=== PATIENT | male | born 1970 | race Caucasian/White ===

== ENCOUNTER 2017-08-27 14:56 | Inpatient (IN) | payer BC, OTHER ==
[2017-08-27] VITALS (8 sets, daily range): BP systolic 120–143; BP diastolic 61–90; PULSE 69–81; RESP 14–18; TEMP 97.6–99.5; O2SAT 92–99
[~2017-08-27] VITALS: Ht 180.3 cm; Wt 95.9 kg
[~2017-08-27 14:56] MED LIST: LORTA5 PO; WARF5TAB PO
[2017-08-27] MEDS ORDERED: SODIUM CHLOR 0.9% 1000 ML INJ 1,000 ML IV SCH (15:27)
[2017-08-27] MEDS ORDERED: ONDANSETRON HCL 4 MG/2 ML VIAL IV PUSH ONE (15:30)
[2017-08-27] MEDS ORDERED: MORPHINE SULFATE 4 MG/ML INJ IV PUSH ONE (15:30)
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
--- NOTE | 2017-08-27 16:04 | RADRPT ---
EXAM DATE/TIME: 08/27/2017 15:36 [facility] COMPARISON: No previous studies available for comparison. INDICATIONS : Chest pain and shortness of breath. MEDICAL HISTORY : Rectal colon cancer. SURGICAL HISTORY : Ileostomy, Tonsillectomy. ENCOUNTER: Initial ACUITY: 1 day PAIN SCORE: 9/10 LOCATION: Bilateral chest FINDINGS: A single view of the chest demonstrates the lungs to be symmetrically aerated without evidence of mas s, infiltrate or effusion. The cardiomediastinal contours are unremarkable. Left fourth rib fracture noted laterally. CONCLUSION: 1. Left fourth rib fracture. No pneumothorax identified. Mild elevation left hemidiaphragm. Aries Sandhu MD on August 27, 2017 at 16:01 Board Certified Radiologist. This report was verified electronically.
[2017-08-27 16:06] LABS: BASOPHIL # 0.1 TH/MM3 (0-0.2); BASOPHIL % 0.3 % (0.0-2.0); EOSINOPHIL % 0.2 % (0.0-4.0); HEMATOCRIT 42.1 % (39.0-51.0); LYMPH % 7.3 % (9.0-44.0); LYMPHOCYTE # 1.3 TH/MM3 (1.0-4.8); MEAN CELL VOLUME 85.4 FL (80.0-100.0); MEAN CORPUSCULAR HEMOGLOBIN 30.4 PG (27.0-34.0); MEAN CORPUSCULAR HGB CONC 35.5 % (32.0-36.0); MEAN PLATELET VOLUME 8.3 FL (7.0-11.0); MONO % 6.3 % (0.0-8.0); MONOCYTE # 1.1 TH/MM3 (0-0.9); NEUT % 85.9 % (16.0-70.0); PLATELET COUNT 204 TH/MM3 (150-450); RED BLOOD COUNT 4.93 MIL/MM3 (4.50-5.90); RED CELL DISTRIBUTION WIDTH 14.1 % (11.6-17.2); WHITE BLOOD COUNT 17.5 TH/MM3 (4.0-11.0)
[2017-08-27 16:18] LABS: PROTHROMBIN TIME - PATIENT 10.5 SEC (9.8-11.6)
[2017-08-27 16:22] LABS: BICARBONATE 30.5 MEQ/L (21.0-32.0); BLOOD UREA NITROGEN 19 MG/DL (7-18); CALCIUM 8.9 MG/DL (8.5-10.1); CHLORIDE 106 MEQ/L (98-107); CREATININE 1.13 MG/DL (0.60-1.30); GLOMERULAR FILTRATION RATE 69 ML/MIN (>89); GLUCOSE,RANDOM 125 MG/DL (74-106); SODIUM (NA) 140 MEQ/L (136-145)
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
[2017-08-27] MEDS ORDERED: IOHEXOL 350 MG/ML 10 ML VIAL (for RAD DIAG) IVCONTRAST ONE (16:26)
[2017-08-27] MEDS ORDERED: MISCELLANEOUS NURSING INFORMATION XX SCH (16:30)
[2017-08-27] MEDS ORDERED: CHLORHEXIDINE GLUCONATE 2 % 1 PACK (2 CLOTHS) TOP PRN (16:30)
[2017-08-27] MEDS ORDERED: ACETAMINOPHEN 1000 MG/100 ML 100 ML IV ONE (16:30)
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
[2017-08-27] MEDS: LACTATED RINGER'S 1000 ML INJ 1,000 ML IV SCH (17:19)
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
[2017-08-27] MEDS: METHOCARBAMOL 500 MG TAB PO SCH ×3 (18:02→23:00)
[2017-08-27] MEDS: LIDOCAINE HCL 5% PATCH T-DERMAL SCH (19:26)
[2017-08-27] MEDS: HYDROmorphone HCL PF 2 MG/ML VIAL IV PRN (20:57)
[2017-08-27] MEDS: DOCUSATE SODIUM 100 MG CAP PO SCH (21:00)
[2017-08-27] MEDS: MAGNESIUM HYDROXIDE SUSP 30 ML CUP PO SCH (21:00)
[2017-08-27] MEDS: REMOVE OLD PATCH T-DERMAL SCH (21:00)
[2017-08-27] MEDS: FAMOTIDINE 20 MG TAB PO SCH (21:00)
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
[2017-08-28] VITALS (19 sets, daily range): BP systolic 115–167; BP diastolic 59–82; PULSE 61–113; RESP 18–21; TEMP 98.3–98.7; O2SAT 91–100
--- NOTE | 2017-08-28 01:18 | RADRPT ---
EXAM DATE/TIME: 08/28/2017 00:48 [facility] COMPARISON: CHEST SINGLE AP, August 27, 2017, 21:31. INDICATIONS : Evaluate pnemothorax. MEDICAL HISTORY : Carcinoma, rectal. Carcinoma, colon. Cardiovascular disease. SURGICAL HISTORY : None. ENCOUNTER: Subsequent ACUITY: 1 week PAIN SCORE: 0/10 LOCATION: Bilateral chest FINDINGS: A single view of the chest demonstrates the lungs to be symmetrically aerated without evidence of mas s, infiltrate or effusion. Bibasilar atelectasis. The cardiomediastinal contours are unremarkable. Sc oliotic spine. CONCLUSION: 1. Bibasilar atelectasis. 2. No pneumothorax. Per Nassar Jr., MD on August 28, 2017 at 1:15 Board Certified Radiologist. This report was verified electronically.
[2017-08-28] MEDS: RESP: ALBUTEROL 2.5 MG/IPRATROPIUM 0.5 MG NEB (PRN) NEB (01:25)
[2017-08-28] MEDS: MORPHINE SULFATE 2 MG/ML INJ IV PRN ×2 (03:28→20:22)
[2017-08-28] MEDS: LACTATED RINGER'S 1000 ML INJ 1,000 ML IV SCH (03:28)
[2017-08-28] MEDS: CHLORHEXIDINE GLUCONATE 2 % 1 PACK (2 CLOTHS) TOP SCH ×2 (03:48→20:21)
[2017-08-28] MEDS: RESP: ALBUTEROL 2.5 MG/IPRATROPIUM 0.5 MG NEB (SCH) NEB ×5 (04:49→19:41)
[2017-08-28 05:28] LABS: BICARBONATE 25.3 MEQ/L (21.0-32.0); CALCIUM 8.7 MG/DL (8.5-10.1); CREATININE 0.77 MG/DL (0.60-1.30)
[2017-08-28 05:40] LABS: AUTOMATED NEUTROPHIL # 6.9 TH/MM3 (1.8-7.7); BASOPHIL # 0.1 TH/MM3 (0-0.2); BASOPHIL % 0.9 % (0.0-2.0); EOSINOPHIL # 0.4 TH/MM3 (0-0.4); EOSINOPHIL % 3.3 % (0.0-4.0); HEMATOCRIT 38.7 % (39.0-51.0); HEMOGLOBIN 13.1 GM/DL (13.0-17.0); LYMPH % 27.1 % (9.0-44.0); LYMPHOCYTE # 3.1 TH/MM3 (1.0-4.8); MEAN CELL VOLUME 78.2 FL (80.0-100.0); MEAN CORPUSCULAR HEMOGLOBIN 26.4 PG (27.0-34.0); MEAN CORPUSCULAR HGB CONC 33.8 % (32.0-36.0); MONO % 8.3 % (0.0-8.0); MONOCYTE # 0.9 TH/MM3 (0-0.9); NEUT % 60.4 % (16.0-70.0); PLATELET COUNT 282 TH/MM3 (150-450); RED BLOOD COUNT 4.95 MIL/MM3 (4.50-5.90); RED CELL DISTRIBUTION WIDTH 15.2 % (11.6-17.2); WHITE BLOOD COUNT 11.4 TH/MM3 (4.0-11.0)
[2017-08-28] MEDS: METHOCARBAMOL 500 MG TAB PO SCH ×3 (06:10→21:01)
[2017-08-28] MEDS: HYDROmorphone HCL PF 2 MG/ML VIAL IV PRN (06:20)
[2017-08-28] MEDS: DOCUSATE SODIUM 100 MG CAP PO SCH ×2 (09:28→20:20)
[2017-08-28] MEDS: FAMOTIDINE 20 MG TAB PO SCH ×2 (09:28→20:20)
[2017-08-28] MEDS: MAGNESIUM HYDROXIDE SUSP 30 ML CUP PO SCH ×2 (09:28→20:20)
[2017-08-28] MEDS: SODIUM CHLORIDE 0.9% FLUSH 10 ML FLUSH IVF PRN (09:30)
[2017-08-28] MEDS: LIDOCAINE HCL 5% PATCH T-DERMAL SCH (09:30)
[2017-08-28] MEDS ORDERED: INFLUENZA VIRUS VACCINE (QUADRIVALENT) 0.5 ML SYR IM ONE (10:00)
[2017-08-28] MEDS ORDERED: PNEUMOCOCCAL POLYVALENT INJ 25 MCG/0.5 ML SYR IM ONE (10:00)
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
[2017-08-28] MEDS ORDERED: oxyCODONE/ACETAMINOPHEN 5 MG/325 MG TAB PO PRN (11:00)
[2017-08-28] MEDS: oxyCODONE/ACETAMINOPHEN 10 MG/325 MG TAB PO PRN ×2 (17:32→22:49)
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
[2017-08-28] MEDS: REMOVE OLD PATCH T-DERMAL SCH (20:20)
[2017-08-29] VITALS (9 sets, daily range): BP systolic 130–154; BP diastolic 72–93; PULSE 84–108; RESP 18–24; TEMP 97.3–98.4; O2SAT 91–95
[2017-08-29] MEDS: oxyCODONE/ACETAMINOPHEN 10 MG/325 MG TAB PO PRN ×3 (02:59→21:33)
[2017-08-29] MEDS: METHOCARBAMOL 500 MG TAB PO SCH ×3 (05:02→21:32)
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
[2017-08-29] MEDS: ACETAMINOPHEN 1000 MG/100 ML 100 ML IV SCH ×3 (07:01→19:40)
[2017-08-29] MEDS: FAMOTIDINE 20 MG TAB PO SCH ×2 (08:01→21:32)
[2017-08-29] MEDS: MAGNESIUM HYDROXIDE SUSP 30 ML CUP PO SCH ×2 (08:01→21:32)
[2017-08-29] MEDS: DOCUSATE SODIUM 50 MG/SENNA 8.6 MG TAB PO SCH ×2 (08:01→21:32)
[2017-08-29] MEDS: SODIUM CHLORIDE 0.9% FLUSH 10 ML FLUSH IVF PRN (08:02)
[2017-08-29] MEDS: LIDOCAINE HCL 5% PATCH T-DERMAL SCH (08:15)
[2017-08-29] MEDS: RESP: ALBUTEROL 2.5 MG/IPRATROPIUM 0.5 MG NEB (SCH) NEB ×4 (08:18→19:44)
[2017-08-29 11:19] LABS: HEMATOCRIT 39.3 % (39.0-51.0); HEMOGLOBIN 13.7 GM/DL (13.0-17.0)
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
[2017-08-29] MEDS: GABAPENTIN 300 MG CAP PO SCH ×2 (13:23→18:12)
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
[2017-08-29] MEDS: LEVOFLOXACIN 500 MG PREMIX INJ 100 ML IV SCH (18:12)
[2017-08-29] MEDS: REMOVE OLD PATCH T-DERMAL SCH (21:36)
[2017-08-30] VITALS (8 sets, daily range): BP systolic 124–186; BP diastolic 79–101; PULSE 108–114; RESP 18–22; TEMP 97–97.9; O2SAT 92–100
[2017-08-30] MEDS: ACETAMINOPHEN 1000 MG/100 ML 100 ML IV SCH (01:25)
[2017-08-30] MEDS: oxyCODONE/ACETAMINOPHEN 10 MG/325 MG TAB PO PRN ×4 (01:30→21:06)
[2017-08-30] MEDS: RESP: ALBUTEROL 2.5 MG/IPRATROPIUM 0.5 MG NEB (PRN) NEB (02:00)
[2017-08-30] MEDS: METHOCARBAMOL 500 MG TAB PO SCH ×3 (05:50→21:06)
--- NOTE | 2017-08-30 07:29 | RADRPT ---
EXAM DATE/TIME: 08/30/2017 06:27 [facility] COMPARISON: CHEST SINGLE AP, August 29, 2017, 5:40. INDICATIONS : Chest pain when coughing. Trauma. MEDICAL HISTORY : Carcinoma, rectal. Carcinoma, colon. Cardiovascular disease. SURGICAL HISTORY : None. ENCOUNTER: Subsequent ACUITY: 3 days PAIN SCORE: 4/10 LOCATION: Bilateral chest FINDINGS: The lungs are aerated. There is bibasilar airspace disease slightly more in the left. Nondisplaced fractures are identified of the fifth through eighth ribs on the left. Heart and mediastinal structures are stable. CONCLUSION: 1. Hypoaerated lungs with bibasilar atelectasis worse on the left. 2. Multiple left-sided rib fractures involving the fifth through eighth ribs. 3. Otherwise stable chest. Giorgi Ribeiro MD on August 30, 2017 at 7:26 Board Certified Radiologist. This report was verified electronically.
[2017-08-30] MEDS ORDERED: LACTULOSE SYRUP 20 GM/30 ML CUP PO ONE (07:30)
[2017-08-30] MEDS: RESP: ALBUTEROL 2.5 MG/IPRATROPIUM 0.5 MG NEB (SCH) NEB ×4 (07:44→19:11)
[2017-08-30] MEDS: FAMOTIDINE 20 MG TAB PO SCH ×2 (08:03→21:06)
[2017-08-30] MEDS: MAGNESIUM HYDROXIDE SUSP 30 ML CUP PO SCH ×2 (08:03→21:07)
[2017-08-30] MEDS: LIDOCAINE HCL 5% PATCH T-DERMAL SCH (08:03)
[2017-08-30] MEDS: ENOXAPARIN SODIUM 30 MG/0.3 ML SYRINGE SQ SCH ×2 (08:03→21:13)
[2017-08-30] MEDS: DOCUSATE SODIUM 50 MG/SENNA 8.6 MG TAB PO SCH ×2 (08:03→21:07)
[2017-08-30] MEDS: GABAPENTIN 300 MG CAP PO SCH ×3 (08:03→16:33)
[2017-08-30 09:20] LABS: AUTOMATED NEUTROPHIL # 9.2 TH/MM3 (1.8-7.7); BASOPHIL % 0.2 % (0.0-2.0); EOSINOPHIL % 0.1 % (0.0-4.0); HEMATOCRIT 40.1 % (39.0-51.0); HEMOGLOBIN 13.5 GM/DL (13.0-17.0); LYMPH % 6.3 % (9.0-44.0); LYMPHOCYTE # 0.7 TH/MM3 (1.0-4.8); MEAN CELL VOLUME 86.7 FL (80.0-100.0); MEAN CORPUSCULAR HEMOGLOBIN 29.1 PG (27.0-34.0); MEAN CORPUSCULAR HGB CONC 33.6 % (32.0-36.0); MEAN PLATELET VOLUME 9.2 FL (7.0-11.0); MONO % 12.8 % (0.0-8.0); MONOCYTE # 1.5 TH/MM3 (0-0.9); NEUT % 80.6 % (16.0-70.0); PLATELET COUNT 162 TH/MM3 (150-450); RED BLOOD COUNT 4.63 MIL/MM3 (4.50-5.90); RED CELL DISTRIBUTION WIDTH 14.1 % (11.6-17.2); WHITE BLOOD COUNT 11.4 TH/MM3 (4.0-11.0)
[2017-08-30 09:49] LABS: CALCIUM 9.5 MG/DL (8.5-10.1); CREATININE 0.86 MG/DL (0.60-1.30)
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
--- NOTE | 2017-08-30 16:28 | HHI.PR ---
Subjective Remarks ALERT NO DISTRESS Objective Vital Signs Date Time Temp Pulse Resp B/P (MAP) Pulse Ox O2 Delivery O2 Flow Rate FiO2 08/30/17 16:02 97.9 108 20 143/95 (111) 93 08/30/17 15:58 Nasal Cannula 3.00 08/30/17 13:42 16 08/30/17 11:30 97.0 110 22 157/100 (119) 93 08/30/17 07:47 92 Nasal Cannula 4.00 08/30/17 07:39 97.6 109 22 142/88 (106) 94 08/30/17 07:00 92 Nasal Cannula 4.00 08/30/17 06:47 109 20 144/89 (107) 95 08/30/17 04:00 97.4 110 18 124/79 (94) 100 08/30/17 02:08 18 08/30/17 01:35 94 Nasal Cannula 4.00 08/30/17 00:00 97.7 111 22 142/101 (115) 94 08/29/17 20:00 98.4 108 18 138/84 (102) 95 I/O 08/29/17 08/29/17 08/29/17 08/30/17 08/30/17 08/30/17 07:00 15:00 23:00 07:00 15:00 23:00 Intake Total 360 ml 200 ml Output Total 400 ml Balance 360 ml 200 ml -400 ml Intake Oral 360 ml IV Total 200 ml Output Urine Total 400 ml # Voids 1 # Bowel Movements 0 1 Result Diagram: 08/30/1770408/30/17 07 Objective Remarks GENERAL: SKIN: Warm and dry. HEAD: Atraumatic. Normocephalic. EYES: Pupils equal and round. No scleral icterus. No injection or drainage. ENT: No nasal bleeding or discharge. Mucous membranes pink and moist. NECK: Trachea midline. No JVD. CARDIOVASCULAR: Regular rate and rhythm. RESPIRATORY: No accessory muscle use. DECREASE BREATH SOUNDS AT BASIS GASTROINTESTINAL: Abdomen soft, non-tender, nondistended. Hepatic and splenic margins not palpable. MUSCULOSKELETAL: Extremities without clubbing, cyanosis, or edema. No obvious deformities. NEUROLOGICAL: Awake and alert. No obvious cranial nerve deficits. Motor grossly within normal limits. Five out of 5 muscle strength in the arms and legs. Normal speech. PSYCHIATRIC: Appropriate mood and affect; insight and judgment normal. Assessment and Plan Assessment and Plan LEFT RIB FX 6 TO 10 BIBASILAR ATELECTASIS , STABLE PLAN PULMONARY TOILET INCREASE ACTIVITY Addi Fontana MD Aug 30, 2017 16:28
[2017-08-30] MEDS: LEVOFLOXACIN 500 MG PREMIX INJ 100 ML IV SCH (16:33)
[2017-08-30] MEDS: REMOVE OLD PATCH T-DERMAL SCH (21:00)
[2017-08-30] MEDS: SODIUM CHLORIDE 0.9% FLUSH 10 ML FLUSH IVF PRN (21:08)
[2017-08-31] VITALS (8 sets, daily range): BP systolic 92–174; BP diastolic 55–101; PULSE 90–109; RESP 17–18; TEMP 97.2–98.7; O2SAT 86–94
[2017-08-31] MEDS: METHOCARBAMOL 500 MG TAB PO SCH (05:31)
[2017-08-31] MEDS: ONDANSETRON HCL 4 MG/2 ML VIAL IV PUSH PRN ×2 (06:09→14:16)
[2017-08-31] MEDS: SODIUM CHLORIDE 0.9% FLUSH 10 ML FLUSH IVF PRN ×2 (06:10→12:09)
[2017-08-31] MEDS: ENOXAPARIN SODIUM 30 MG/0.3 ML SYRINGE SQ SCH ×2 (07:51→23:11)
[2017-08-31] MEDS: MAGNESIUM HYDROXIDE SUSP 30 ML CUP PO SCH (07:51)
[2017-08-31] MEDS: GABAPENTIN 300 MG CAP PO SCH ×2 (07:51→12:13)
[2017-08-31] MEDS: FAMOTIDINE 20 MG TAB PO SCH (07:51)
[2017-08-31] MEDS: DOCUSATE SODIUM 50 MG/SENNA 8.6 MG TAB PO SCH (07:51)
[2017-08-31] MEDS: LIDOCAINE HCL 5% PATCH T-DERMAL SCH (07:52)
[2017-08-31] MEDS: oxyCODONE/ACETAMINOPHEN 10 MG/325 MG TAB PO PRN (07:53)
[2017-08-31] MEDS: RESP: ALBUTEROL 2.5 MG/IPRATROPIUM 0.5 MG NEB (SCH) NEB ×4 (08:34→20:00)
[2017-08-31] MEDS ORDERED: LISINOPRIL 20 MG TAB PO SCH (09:00)
[2017-08-31] MEDS ORDERED: PROMETHAZINE HCL 25 MG SUPP RECTAL ONE (12:00)
[2017-08-31] MEDS ORDERED: ENALAPRILAT 1.25 MG/ML VIAL IV PUSH PRN (12:00)
[2017-08-31] MEDS: MORPHINE SULFATE 2 MG/ML INJ IV PRN (12:09)
[2017-08-31 12:42] LABS: HEMATOCRIT 41.6 % (39.0-51.0); HEMOGLOBIN 14.3 GM/DL (13.0-17.0)
[2017-08-31] MEDS ORDERED: IOHEXOL 350 MG/ML 10 ML VIAL (for RAD DIAG) IVCONTRAST ONE (13:28)
--- NOTE | 2017-08-31 13:30 | RADRPT ---
EXAM DATE/TIME: 08/31/2017 12:55 [facility] COMPARISON: CT THORAX W CONTRAST, August 27, 2017, 15:56. INDICATIONS : Abdominal pain, distention. IV CONTRAST: 71 cc Omnipaque 350 (iohexol) IV ORAL CONTRAST: No oral contrast ingested. RADIATION DOSE: 10.49 CTDIvol (mGy) MEDICAL HISTORY : Carcinoma, colon. SURGICAL HISTORY : Colon resection. Tonsillectomy. ENCOUNTER: Initial ACUITY: 1 day PAIN SCALE: 7/10 LOCATION: Bilateral Abdomen TECHNIQUE: Volumetric scanning of the abdomen and pelvis was performed. Using automated exposure control and ad justment of the mA and/or kV according to patient size, radiation dose was kept as low as reasonably achievable to obtain optimal diagnostic quality images. DICOM format image data is available electro nically for review and comparison. FINDINGS: Comparison is August 27. Compared to previous exam there is development of a small left pleural effusi on and there is increasing basilar air space disease in both lungs multiple lower left rib fractures again noted. Previously identified left pneumothorax is nearly completely resolved. Again seen is several splenic lacerations. There is improvement in perisplenic hemorrhage. No acute f indings in the liver adrenals, kidneys or pancreas. Since previous exam interval development of marked gastric distention and dilatation of proximal and mid small bowel. There is some distal decompression of small bowel. His previous partial colonic rese ction. CONCLUSION: 1. Development of marked distention of the stomach and proximal and mid small bowel most characterist ic of a distal small bowel obstruction. No free air. Previous partial colonic resection with surgical clips in the right lower quadrant. 2. Development of small left pleural effusion with increasing bibasilar air space disease in the lung s. Differential diagnosis includes pneumonia and aspiration. 3. Splenic lacerations with improvement in perisplenic hemorrhage since August 27. 4. Multiple lower left rib fractures as noted previously with near complete resolution of left pneumo thorax. Aries Sandhu MD on August 31, 2017 at 13:23 Board Certified Radiologist. This report was verified electronically.
[2017-08-31] MEDS ORDERED: PROMETHAZINE HCL 25 MG SUPP RECTAL PRN (14:00)
[2017-08-31] MEDS ORDERED: DEXAMETHASONE SOD PHOS 4 MG/ML VIAL IV PUSH ONE (14:00)
[2017-08-31] MEDS ORDERED: cloNIDine HCL 0.2 MG/24 HR PATCH T-DERMAL SCH (14:00)
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
--- NOTE | 2017-08-31 15:29 | HHI.PR ---
Subjective Remarks ALERT NO DISTRESS ABDOMEN DISTENDED Objective Vital Signs Date Time Temp Pulse Resp B/P (MAP) Pulse Ox O2 Delivery O2 Flow Rate FiO2 08/31/17 12:00 97.7 100 18 161/100 (120) 86 08/31/17 08:36 92 Nasal Cannula 4.00 08/31/17 08:02 90 Nasal Cannula 4.00 08/31/17 08:00 98.4 106 18 174/101 (125) 90 08/31/17 04:00 97.2 109 18 145/88 (107) 94 08/31/17 00:00 98.2 96 18 137/81 (99) 93 08/30/17 21:43 Nasal Cannula 4.00 08/30/17 20:00 97.7 114 18 186/98 (127) 92 08/30/17 16:02 97.9 108 20 143/95 (111) 93 08/30/17 15:58 Nasal Cannula 3.00 I/O 08/30/17 08/30/17 08/30/17 08/31/17 08/31/17 08/31/17 07:00 15:00 23:00 07:00 15:00 23:00 Intake Total 200 ml Output Total 400 ml 500 ml Balance 200 ml -400 ml -500 ml IV Total 200 ml Output Urine Total 400 ml 500 ml # Bowel Movements 0 1 Result Diagram: 08/31/17 1220 08/30/17 0705 Objective Remarks GENERAL: SKIN: Warm and dry. HEAD: Atraumatic. Normocephalic. EYES: Pupils equal and round. No scleral icterus. No injection or drainage. ENT: No nasal bleeding or discharge. Mucous membranes pink and moist. NECK: Trachea midline. No JVD. CARDIOVASCULAR: Regular rate and rhythm. RESPIRATORY: No accessory muscle use. DECREASE BREATH SOUNDS AT BASIS GASTROINTESTINAL: Abdomen distended. Hepatic and splenic margins not palpable. MUSCULOSKELETAL: Extremities without clubbing, cyanosis, or edema. No obvious deformities. NEUROLOGICAL: Awake and alert. No obvious cranial nerve deficits. Motor grossly within normal limits. Five out of 5 muscle strength in the arms and legs. Normal speech. PSYCHIATRIC: Appropriate mood and affect; insight and judgment normal. Assessment and Plan Assessment and Plan LEFT RIB FX 6 TO 10 BIBASILAR ATELECTASIS , STABLE ? BOWEL OBSTRUCTION PLAN PULMONARY TOILET INCREASE ACTIVITY Addi Fontana MD 15, 2018 15:29
[2017-08-31 16:12] LABS: AUTOMATED NEUTROPHIL # 8.4 TH/MM3 (1.8-7.7); BASOPHIL % 0.1 % (0.0-2.0); HEMATOCRIT 38.7 % (39.0-51.0); HEMOGLOBIN 13.2 GM/DL (13.0-17.0); LYMPH % 6.6 % (9.0-44.0); LYMPHOCYTE # 0.7 TH/MM3 (1.0-4.8); MEAN CELL VOLUME 85.7 FL (80.0-100.0); MEAN CORPUSCULAR HEMOGLOBIN 29.1 PG (27.0-34.0); MEAN PLATELET VOLUME 8.5 FL (7.0-11.0); MONOCYTE # 1.5 TH/MM3 (0-0.9); NEUT % 79.3 % (16.0-70.0); PLATELET COUNT 187 TH/MM3 (150-450); RED BLOOD COUNT 4.52 MIL/MM3 (4.50-5.90); RED CELL DISTRIBUTION WIDTH 13.8 % (11.6-17.2); WHITE BLOOD COUNT 10.6 TH/MM3 (4.0-11.0)
[2017-08-31] MEDS: LEVOFLOXACIN 500 MG PREMIX INJ 100 ML IV SCH (18:17)
[2017-08-31] MEDS: REMOVE OLD PATCH T-DERMAL SCH (21:00)
[2017-08-31] MEDS: FAMOTIDINE 20 MG/2 ML VIAL IV PUSH SCH (23:11)
[2017-09-01] VITALS (9 sets, daily range): BP systolic 99–110; BP diastolic 51–59; PULSE 80–99; RESP 17–18; TEMP 97.4–99.1; O2SAT 81–99
[2017-09-01] MEDS: ONDANSETRON HCL 4 MG/2 ML VIAL IV PUSH PRN (00:10)
[2017-09-01 04:45] LABS: AUTOMATED NEUTROPHIL # 8.2 TH/MM3 (1.8-7.7); BASOPHIL % 0.3 % (0.0-2.0); HEMATOCRIT 40.1 % (39.0-51.0); HEMOGLOBIN 13.6 GM/DL (13.0-17.0); LYMPHOCYTE # 0.8 TH/MM3 (1.0-4.8); MEAN CORPUSCULAR HEMOGLOBIN 28.8 PG (27.0-34.0); MEAN CORPUSCULAR HGB CONC 33.8 % (32.0-36.0); MONO % 12.9 % (0.0-8.0); MONOCYTE # 1.3 TH/MM3 (0-0.9); NEUT % 78.8 % (16.0-70.0); PLATELET COUNT 197 TH/MM3 (150-450); RED BLOOD COUNT 4.72 MIL/MM3 (4.50-5.90); RED CELL DISTRIBUTION WIDTH 13.8 % (11.6-17.2); WHITE BLOOD COUNT 10.4 TH/MM3 (4.0-11.0)
[2017-09-01 04:55] LABS: CALCIUM 9.4 MG/DL (8.5-10.1); CREATININE 2.86 MG/DL (0.60-1.30)
[2017-09-01 05:47] LABS: BICARBONATE 42.3 MEQ/L (21.0-32.0)
[2017-09-01] MEDS ORDERED: LACTATED RINGER'S 1000 ML INJ 1,000 ML IV SCH (07:00)
[2017-09-01] MEDS ORDERED: LACTATED RINGER'S 1000 ML INJ 1,000 ML IV ONE (07:00)
[2017-09-01] MEDS ORDERED: SODIUM CHLOR 0.9% 1000 ML INJ 1,000 ML IV ONE ×2 (07:15→14:00)
[2017-09-01] MEDS: SODIUM CHLOR 0.9% 1000 ML INJ 1,000 ML IV SCH ×2 (07:17→14:26)
[2017-09-01] MEDS: ENOXAPARIN SODIUM 30 MG/0.3 ML SYRINGE SQ SCH (07:23)
[2017-09-01] MEDS: FAMOTIDINE 20 MG/2 ML VIAL IV PUSH SCH ×2 (07:23→21:47)
[2017-09-01] MEDS: LIDOCAINE HCL 5% PATCH T-DERMAL SCH (07:24)
[2017-09-01] MEDS: MORPHINE SULFATE 4 MG/ML INJ IV PRN (07:30)
--- NOTE | 2017-09-01 07:38 | RADRPT ---
EXAM DATE/TIME: 09/01/2017 07:04 [facility] COMPARISON: CHEST SINGLE AP, August 30, 2017, 6:27. INDICATIONS : Short of breath, chest discomfort MEDICAL HISTORY : Cardiovascular disease. rectal and colon carcinoma SURGICAL HISTORY : None. ENCOUNTER: Subsequent ACUITY: 4 - 6 days PAIN SCORE: 3/10 LOCATION: Bilateral chest FINDINGS: Improving aeration is noted. There is persistent bibasilar airspace disease with some clearing on the left. Nasogastric tube has been inserted and is in good position. Heart and mediastinal structures remain unremarkable. CONCLUSION: Improving lung aeration with decreasing basilar air space disease Nasogastric tube in good position. Giorgi Ribeiro MD on September 01, 2017 at 7:35 Board Certified Radiologist. This report was verified electronically.
[2017-09-01] MEDS: RESP: ALBUTEROL 2.5 MG/IPRATROPIUM 0.5 MG NEB (SCH) NEB (08:14)
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
[2017-09-01] MEDS: HEPARIN SODIUM - SQ 10,000 UNITS/ML VIAL SQ SCH ×2 (14:26→23:15)
--- NOTE | 2017-09-01 15:18 | HHI.PR ---
Subjective Remarks ALERT NO DISTRESS ABDOMEN DISTENDED Objective Vital Signs Date Time Temp Pulse Resp B/P (MAP) Pulse Ox O2 Delivery O2 Flow Rate FiO2 09/01/17 11:55 98.5 83 18 100/57 (71) 90 09/01/17 08:17 92 Nasal Cannula 5.00 09/01/17 07:46 98.9 99 18 110/59 (76) 81 09/01/17 06:18 89 104/51 (68) 09/01/17 05:28 98.0 94 17 100/59 (73) 94 09/01/17 00:05 99.1 86 17 101/55 (70) 95 08/31/17 22:14 Nasal Cannula 4.00 08/31/17 21:02 94 Nasal Cannula 4.00 08/31/17 20:32 97.7 95 17 92/56 (68) 93 08/31/17 16:00 98.7 90 18 101/55 (70) 92 I/O 08/31/17 08/31/17 08/31/17 09/01/17 09/01/17 09/01/17 07:00 15:00 23:00 07:00 15:00 23:00 Intake Total 990 ml Output Total 500 ml 3800 ml 2000 ml 200 ml Balance -500 ml -3800 ml -2000 ml 790 ml IV Total 990 ml Output Urine Total 500 ml 350 ml 200 ml Gastric Drainage Total 1650 ml Drainage Total 3800 ml Bladder Scan Volume Amount 679 ml # Voids 1 # Bowel Movements 1 Result Diagram: 09/01/17 0321 09/01/17 0321 Objective Remarks GENERAL: SKIN: Warm and dry. HEAD: Atraumatic. Normocephalic. EYES: Pupils equal and round. No scleral icterus. No injection or drainage. ENT: No nasal bleeding or discharge. Mucous membranes pink and moist. NECK: Trachea midline. No JVD. CARDIOVASCULAR: Regular rate and rhythm. RESPIRATORY: No accessory muscle use. DECREASE BREATH SOUNDS AT BASIS GASTROINTESTINAL: Abdomen distended. Hepatic and splenic margins not palpable. MUSCULOSKELETAL: Extremities without clubbing, cyanosis, or edema. No obvious deformities. NEUROLOGICAL: Awake and alert. No obvious cranial nerve deficits. Motor grossly within normal limits. Five out of 5 muscle strength in the arms and legs. Normal speech. PSYCHIATRIC: Appropriate mood and affect; insight and judgment normal. Assessment and Plan Assessment and Plan LEFT RIB FX 6 TO 10 BIBASILAR ATELECTASIS , STABLE ? BOWEL OBSTRUCTION, rosa isela today PLAN PULMONARY TOILET INCREASE ACTIVITY Addi Fontana MD Sep 01, 2017 15:18
[2017-09-01] MEDS: LEVOFLOXACIN 500 MG PREMIX INJ 100 ML IV SCH (17:14)
--- NOTE | 2017-09-01 18:39 | RADRPT ---
EXAM DATE/TIME: 09/01/2017 18:17 [facility] COMPARISON: CHEST SINGLE AP, September 01, 2017, 7:04. INDICATIONS : Abdominal distention. MEDICAL HISTORY : Carcinoma, colon. SURGICAL HISTORY : Colon resection. Tonsillectomy. ENCOUNTER: Initial ACUITY: 3 days PAIN SCORE: 6/10 LOCATION: Bilateral abdomen FINDINGS: There is a nasogastric tube present within the stomach. The exam demonstrates multiple air-filled, moderately dilated loops of small bowel suggesting possibl e bowel obstruction versus ileus. There is gas and stool evident within the colon. No free intraperitoneal air is evident. The osseous structures visualized are grossly intact. CONCLUSION: 1. There are multiple air-filled dilated loops of small bowel. There is gas and stool within the cecu m. Study would suggest an bowel obstruction versus ileus. Benjamin Mcallister MD on September 01, 2017 at 18:36 Board Certified Radiologist. This report was verified electronically.
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
[2017-09-01] MEDS: REMOVE OLD PATCH T-DERMAL SCH (21:49)
[2017-09-01] MEDS: SODIUM CHLORIDE 0.9% FLUSH 10 ML FLUSH IVF PRN (21:49)
[2017-09-02] VITALS (11 sets, daily range): BP systolic 109–133; BP diastolic 59–72; PULSE 17–91; RESP 17–22; TEMP 97.3–98.8; O2SAT 91–97
[2017-09-02] MEDS: SODIUM CHLOR 0.9% 1000 ML INJ 1,000 ML IV SCH ×3 (04:24→23:15)
[2017-09-02 05:43] LABS: AUTOMATED NEUTROPHIL # 8.3 TH/MM3 (1.8-7.7); BASOPHIL % 0.2 % (0.0-2.0); EOSINOPHIL # 0.1 TH/MM3 (0-0.4); EOSINOPHIL % 0.9 % (0.0-4.0); HEMATOCRIT 38.3 % (39.0-51.0); HEMOGLOBIN 13.2 GM/DL (13.0-17.0); LYMPH % 9.1 % (9.0-44.0); MEAN CELL VOLUME 85.5 FL (80.0-100.0); MEAN CORPUSCULAR HEMOGLOBIN 29.4 PG (27.0-34.0); MEAN CORPUSCULAR HGB CONC 34.3 % (32.0-36.0); MEAN PLATELET VOLUME 8.2 FL (7.0-11.0); MONOCYTE # 1.5 TH/MM3 (0-0.9); NEUT % 75.8 % (16.0-70.0); PLATELET COUNT 222 TH/MM3 (150-450); RED BLOOD COUNT 4.48 MIL/MM3 (4.50-5.90); RED CELL DISTRIBUTION WIDTH 13.8 % (11.6-17.2)
[2017-09-02 06:09] LABS: BICARBONATE 39.1 MEQ/L (21.0-32.0); CALCIUM 8.8 MG/DL (8.5-10.1); CREATININE 2.45 MG/DL (0.60-1.30)
[2017-09-02] MEDS: HEPARIN SODIUM - SQ 10,000 UNITS/ML VIAL SQ SCH ×3 (06:22→23:05)
[2017-09-02] MEDS ORDERED: SODIUM CHLOR 0.9% 1000 ML INJ 1,000 ML IV ONE (07:15)
[2017-09-02] MEDS: FAMOTIDINE 20 MG/2 ML VIAL IV PUSH SCH (08:11)
[2017-09-02] MEDS: SODIUM CHLORIDE 0.9% FLUSH 10 ML FLUSH IVF PRN (08:11)
[2017-09-02] MEDS: LIDOCAINE HCL 5% PATCH T-DERMAL SCH (08:11)
[2017-09-02] MEDS: MORPHINE SULFATE 4 MG/ML INJ IV PRN ×2 (08:20→19:10)
[2017-09-02 10:23] LABS: MAGNESIUM 3.9 MG/DL (1.5-2.5); PHOSPHORUS 3.5 MG/DL (2.5-4.9)
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
[2017-09-02] MEDS ORDERED: POTASSIUM CHLORIDE 10 MEQ CONTROLLED RELEASE TAB PO ONE (14:30)
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
[2017-09-02] MEDS: RESP: ALBUTEROL 2.5 MG/IPRATROPIUM 0.5 MG NEB (SCH) INH ×2 (16:41→20:16)
[2017-09-02] MEDS: LEVOFLOXACIN/DEXTROSE 250 MG/50 ML IV SCH (17:13)
[2017-09-02] MEDS ORDERED: FAMOTIDINE 20 MG/2 ML VIAL IV PUSH SCH (21:00)
[2017-09-02] MEDS: REMOVE OLD PATCH T-DERMAL SCH (23:07)
[2017-09-03] VITALS (12 sets, daily range): BP systolic 125–159; BP diastolic 76–87; PULSE 77–104; RESP 18–20; TEMP 97.6–98.3; O2SAT 93–96
[2017-09-03 06:20] LABS: BASOPHIL % 0.3 % (0.0-2.0); EOSINOPHIL # 0.2 TH/MM3 (0-0.4); EOSINOPHIL % 1.5 % (0.0-4.0); HEMATOCRIT 37.7 % (39.0-51.0); HEMOGLOBIN 12.6 GM/DL (13.0-17.0); LYMPH % 10.4 % (9.0-44.0); LYMPHOCYTE # 1.2 TH/MM3 (1.0-4.8); MEAN CORPUSCULAR HEMOGLOBIN 28.8 PG (27.0-34.0); MEAN CORPUSCULAR HGB CONC 33.5 % (32.0-36.0); MEAN PLATELET VOLUME 8.2 FL (7.0-11.0); MONO % 11.5 % (0.0-8.0); MONOCYTE # 1.4 TH/MM3 (0-0.9); NEUT % 76.3 % (16.0-70.0); PLATELET COUNT 212 TH/MM3 (150-450); RED BLOOD COUNT 4.38 MIL/MM3 (4.50-5.90); RED CELL DISTRIBUTION WIDTH 13.9 % (11.6-17.2); WHITE BLOOD COUNT 11.7 TH/MM3 (4.0-11.0)
[2017-09-03 06:44] LABS: BICARBONATE 31.5 MEQ/L (21.0-32.0); CALCIUM 8.7 MG/DL (8.5-10.1); CREATININE 1.12 MG/DL (0.60-1.30)
[2017-09-03] MEDS: HEPARIN SODIUM - SQ 10,000 UNITS/ML VIAL SQ SCH ×3 (06:49→22:53)
[2017-09-03] MEDS: RESP: ALBUTEROL 2.5 MG/IPRATROPIUM 0.5 MG NEB (SCH) INH ×4 (07:51→20:00)
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
[2017-09-03] MEDS: FAMOTIDINE 20 MG TAB PO SCH ×2 (08:52→20:31)
[2017-09-03] MEDS: DOCUSATE SODIUM 50 MG/SENNA 8.6 MG TAB PO SCH ×2 (08:52→20:32)
[2017-09-03] MEDS: SODIUM CHLOR 0.9% 1000 ML INJ 1,000 ML IV SCH ×4 (08:52→20:42)
[2017-09-03] MEDS: MAGNESIUM HYDROXIDE SUSP 30 ML CUP PO SCH ×2 (08:52→20:32)
[2017-09-03] MEDS: LIDOCAINE HCL 5% PATCH T-DERMAL SCH (08:52)
[2017-09-03] MEDS: oxyCODONE/ACETAMINOPHEN 10 MG/325 MG TAB PO PRN ×2 (08:52→17:31)
[2017-09-03] MEDS: GABAPENTIN 300 MG CAP PO SCH ×3 (08:52→17:31)
[2017-09-03] MEDS ORDERED: BISACODYL 10 MG SUPP RECTAL ONE (10:30)
--- NOTE | 2017-09-03 10:36 | HHI.PR ---
Subjective Remarks AxR appears to be ileus pattern. Stool in rectum and sigmoid. Air in colon above Objective Vital Signs Date Time Temp Pulse Resp B/P (MAP) Pulse Ox O2 Delivery O2 Flow Rate FiO2 09/03/17 09:47 82 09/03/17 08:40 98.1 85 18 125/76 (92) 94 09/03/17 07:51 96 Nasal Cannula 4.00 09/03/17 04:53 98.3 80 18 132/79 (96) 95 09/03/17 04:26 77 09/03/17 02:25 Nasal Cannula 4.00 Humidified 09/03/17 00:45 97.6 85 18 140/78 (98) 95 09/03/17 00:01 95 09/02/17 21:23 97.9 82 18 133/72 (92) 94 09/02/17 20:19 94 Nasal Cannula 4.00 09/02/17 20:00 89 09/02/17 17:54 83 09/02/17 16:43 96 Nasal Cannula 4.00 09/02/17 16:14 98.8 85 20 126/60 (82) 96 09/02/17 15:19 77 09/02/17 12:49 97.9 81 20 111/59 (76) 92 I/O 09/02/17 09/02/17 09/02/17 09/03/17 09/03/17 09/03/17 07:00 15:00 23:00 07:00 15:00 23:00 Intake Total 1123 ml 1490 ml Output Total 1500 ml 350 ml 950 ml 500 ml Balance -377 ml -350 ml 540 ml -500 ml IV Total 1123 ml 1490 ml Output Urine Total 1300 ml 350 ml 950 ml 500 ml Gastric Drainage Total 200 ml # Voids 7 # Bowel Movements 8 1 Result Diagram: 09/03/17 0425 09/03/17 0425 Objective Remarks Abd: obese,soft,minimal distention Assessment and Plan Assessment and Plan Stable Would start Regular Diet. Will give Dulcolax Suppository now. Will sign off. Jose Guadalupe Ayers MD Sep 03, 2017 10:36
[2017-09-03] MEDS: METHOCARBAMOL 500 MG TAB PO SCH ×2 (13:51→20:31)
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
[2017-09-03] MEDS: LEVOFLOXACIN/DEXTROSE 250 MG/50 ML IV SCH (17:32)
[2017-09-03] MEDS: ONDANSETRON HCL 4 MG/2 ML VIAL IV PUSH PRN (20:33)
[2017-09-03] MEDS: SODIUM CHLORIDE 0.9% FLUSH 10 ML FLUSH IVF PRN (20:33)
[2017-09-03] MEDS: REMOVE OLD PATCH T-DERMAL SCH (21:00)
[2017-09-04] VITALS (11 sets, daily range): BP systolic 115–159; BP diastolic 69–85; PULSE 72–96; RESP 16–20; TEMP 91.8–99.7; O2SAT 92–95
[2017-09-04] MEDS: ONDANSETRON HCL 4 MG/2 ML VIAL IV PUSH PRN (02:28)
[2017-09-04] MEDS: SODIUM CHLORIDE 0.9% FLUSH 10 ML FLUSH IVF PRN (02:29)
[2017-09-04 05:17] LABS: BICARBONATE 30.9 MEQ/L (21.0-32.0); CALCIUM 8.6 MG/DL (8.5-10.1); CREATININE 0.9 MG/DL (0.60-1.30)
[2017-09-04] MEDS: METHOCARBAMOL 500 MG TAB PO SCH ×3 (05:22→20:44)
[2017-09-04] MEDS: SODIUM CHLOR 0.9% 1000 ML INJ 1,000 ML IV SCH ×2 (05:23→22:28)
[2017-09-04] MEDS: HEPARIN SODIUM - SQ 10,000 UNITS/ML VIAL SQ SCH ×3 (06:14→20:43)
--- NOTE | 2017-09-04 07:35 | RADRPT ---
EXAM DATE/TIME: 09/04/2017 07:12 [facility] COMPARISON: CT ABDOMEN & PELVIS W CONTRAST, August 31, 2017, 12:55. CHEST SINGLE AP, September 01, 2017, 7:04. INDICATIONS : Shortness of breath with cough. MEDICAL HISTORY : Cardiovascular disease. Rectal and colon carcinoma SURGICAL HISTORY : None. ENCOUNTER: Subsequent ACUITY: 1 week PAIN SCORE: 2/10 LOCATION: Bilateral chest FINDINGS: Persistent bilateral pulmonary infiltrates are noted consistent with possible pneumonia. Small left p leural effusion is also again noted. The heart is stable. CONCLUSION: 1. Persistent bilateral pulmonary infiltrates consistent with possible pneumonia. 2. Small left pleural effusion. Ramin Oliva MD on September 04, 2017 at 7:32 Board Certified Radiologist. This report was verified electronically.
[2017-09-04] MEDS: RESP: ALBUTEROL 2.5 MG/IPRATROPIUM 0.5 MG NEB (SCH) INH ×4 (08:50→20:35)
[2017-09-04] MEDS: GABAPENTIN 300 MG CAP PO SCH ×3 (09:58→18:01)
[2017-09-04] MEDS: MAGNESIUM HYDROXIDE SUSP 30 ML CUP PO SCH ×2 (09:58→20:43)
[2017-09-04] MEDS: FAMOTIDINE 20 MG TAB PO SCH ×2 (09:58→20:43)
[2017-09-04] MEDS: DOCUSATE SODIUM 50 MG/SENNA 8.6 MG TAB PO SCH ×2 (09:58→20:44)
[2017-09-04] MEDS: LIDOCAINE HCL 5% PATCH T-DERMAL SCH (09:59)
[2017-09-04] MEDS: oxyCODONE/ACETAMINOPHEN 10 MG/325 MG TAB PO PRN ×2 (10:00→18:03)
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
--- NOTE | 2017-09-04 16:42 | HHI.PR ---
Subjective Remarks ALERT NO DISTRESS Objective Vital Signs Date Time Temp Pulse Resp B/P (MAP) Pulse Ox O2 Delivery O2 Flow Rate FiO2 09/04/17 14:22 75 09/04/17 11:36 94 Nasal Cannula 1.00 09/04/17 08:51 93 Nasal Cannula 2.00 09/04/17 08:00 98.0 90 16 133/69 (90) 93 09/04/17 04:05 97.4 72 18 115/71 (86) 95 09/04/17 00:53 99.7 93 20 159/85 (109) 95 09/03/17 20:15 Nasal Cannula 2.00 Humidified 09/03/17 19:58 98.3 104 20 159/77 (104) 95 I/O 09/03/17 09/03/17 09/03/17 09/04/17 09/04/17 09/04/17 07:00 15:00 23:00 07:00 15:00 23:00 Intake Total 880 ml 50 ml Output Total 500 ml 600 ml 400 ml Balance -500 ml 280 ml 50 ml -400 ml Intake Oral 480 ml IV Total 400 ml 50 ml Output Urine Total 500 ml 600 ml 400 ml # Voids 3 # Bowel Movements 2 1 Result Diagram: 09/03/17 0425 09/04/17 0336 Objective Remarks GENERAL: SKIN: Warm and dry. HEAD: Atraumatic. Normocephalic. EYES: Pupils equal and round. No scleral icterus. No injection or drainage. ENT: No nasal bleeding or discharge. Mucous membranes pink and moist. NECK: Trachea midline. No JVD. CARDIOVASCULAR: Regular rate and rhythm. RESPIRATORY: No accessory muscle use. DECREASE BREATH SOUNDS AT BASIS GASTROINTESTINAL: Abdomen distended. Hepatic and splenic margins not palpable. MUSCULOSKELETAL: Extremities without clubbing, cyanosis, or edema. No obvious deformities. NEUROLOGICAL: Awake and alert. No obvious cranial nerve deficits. Motor grossly within normal limits. Five out of 5 muscle strength in the arms and legs. Normal speech. PSYCHIATRIC: Appropriate mood and affect; insight and judgment normal. Assessment and Plan Assessment and Plan LEFT RIB FX 6 TO 10 BIBASILAR ATELECTASIS , STABLE ? BOWEL OBSTRUCTION, Better PLAN PULMONARY TOILET INCREASE ACTIVITY Addi Fontana MD Sep 04, 2017 16:42
[2017-09-04] MEDS: LEVOFLOXACIN/DEXTROSE 250 MG/50 ML IV SCH (18:00)
[2017-09-04] MEDS: REMOVE OLD PATCH T-DERMAL SCH (20:44)
[2017-09-05] VITALS: PULSE 77
[2017-09-05 00:43] VITALS: BP 116/68; PULSE 81; RESP 16; TEMP 98; O2SAT 93
[2017-09-05 04:49] VITALS: BP 147/88; PULSE 81; RESP 16; TEMP 97.8; O2SAT 94
[2017-09-05] MEDS: METHOCARBAMOL 500 MG TAB PO SCH (06:20)
[2017-09-05] MEDS: HEPARIN SODIUM - SQ 10,000 UNITS/ML VIAL SQ SCH (06:20)
[2017-09-05] MEDS ORDERED: OXYC1TAB63 PO (06:52)
[2017-09-05] MEDS ORDERED: LEVA500T33 PO (06:52)
[2017-09-05] MEDS ORDERED: PERI PO (06:52)
[2017-09-05 08:00] VITALS: BP 137/85; PULSE 92; RESP 16; TEMP 99.2; O2SAT 95
[2017-09-05] MEDS: RESP: ALBUTEROL 2.5 MG/IPRATROPIUM 0.5 MG NEB (SCH) INH (08:00)
[2017-09-05] MEDS: FAMOTIDINE 20 MG TAB PO SCH (08:02)
[2017-09-05] MEDS: GABAPENTIN 300 MG CAP PO SCH (08:02)
[2017-09-05] MEDS: MAGNESIUM HYDROXIDE SUSP 30 ML CUP PO SCH (08:02)
[2017-09-05] MEDS: DOCUSATE SODIUM 50 MG/SENNA 8.6 MG TAB PO SCH (08:02)
[2017-09-05 08:03] VITALS: O2SAT 94
[2017-09-05] MEDS: LIDOCAINE HCL 5% PATCH T-DERMAL SCH (08:03)
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
[2017-09-05] MEDS ORDERED: LEVOFLOXACIN 500 MG TAB PO SCH (09:00)
[2017-09-05 09:35] VITALS: PULSE 90
[2017-09-05] MEDS: SODIUM CHLOR 0.9% 1000 ML INJ 1,000 ML IV SCH (11:15)
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
== END 2017-09-05 11:49 | disposition home or self-care (01) | DRG 963 ==
LOC: NEPE 14:56 → NEDA 16:55 → N03A 20:47 → N05B 08-29 02:11
PROVIDERS: ADMIT Surgery Trauma Surgery; ATTEND Surgery Trauma Surgery
DX: S36.032A Major laceration of spleen, initial encounter (principal); J18.9 Pneumonia, unspecified organism; S27.321A Contusion of lung, unilateral, initial encounter; S27.0XXA Traumatic pneumothorax, initial encounter; N17.9 Acute kidney failure, unspecified; D68.51 Activated protein C resistance; S22.42XA Multiple fractures of ribs, left side, initial encounter for closed fracture; J44.0 Chronic obstructive pulmonary disease with (acute) lower respiratory infection; K56.7 Ileus, unspecified; J98.11 Atelectasis; I10 Essential (primary) hypertension; F17.210 Nicotine dependence, cigarettes, uncomplicated; Z85.048 Personal history of other malignant neoplasm of rectum, rectosigmoid junction, and anus; Z86.718 Personal history of other venous thrombosis and embolism; V27.4XXA Motorcycle driver injured in collision with fixed or stationary object in traffic accident, initial encounter; Y92.410 Unspecified street and highway as the place of occurrence of the external cause; Z92.21 Personal history of antineoplastic chemotherapy; Z92.3 Personal history of irradiation; Z23 Encounter for immunization
CPT/HCPCS: 70450; 71045; 71260; 72125; 74019; 74177; 76937; 80048; 80307; 82378; 83735; 84100; 85014; 85018; 85025; 85610; 85730; 86850; 86900; 86901; 87641; 90686; 90732; 94003; 94150; 94640; 94664; 94667; 94668; 96361; 96374; 96375; J0131; J1100; J1170; J1644; J1650; J1956; J2270; J2405; J7030; J7120; Q2038; Q9967

== ENCOUNTER → 2017-09-25 | Outpatient (CLI) | payer OTHER ==
[~2017-09-25] MED LIST changes: +LEVA500T33 PO; -LORTA5 PO; +OXYC1TAB63 PO; +PERI PO; -WARF5TAB PO
[2017-09-25 14:21] LABS: HEMATOCRIT 41.1 % (39.0-51.0); HEMOGLOBIN 13.8 GM/DL (13.0-17.0); MEAN CELL VOLUME 85.3 FL (80.0-100.0); MEAN CORPUSCULAR HEMOGLOBIN 28.6 PG (27.0-34.0); MEAN CORPUSCULAR HGB CONC 33.5 % (32.0-36.0); MEAN PLATELET VOLUME 7.4 FL (7.0-11.0); PLATELET COUNT 264 TH/MM3 (150-450); RED BLOOD COUNT 4.82 MIL/MM3 (4.50-5.90); RED CELL DISTRIBUTION WIDTH 13.8 % (11.6-17.2); WHITE BLOOD COUNT 9.5 TH/MM3 (4.0-11.0)
[2017-09-25 14:30] LABS: INTERNATIONAL NORMALIZED RATIO 1.1 RATIO; PROTHROMBIN TIME - PATIENT 11.2 SEC (9.8-11.6)
== END ==
LOC: CLAB 14:03
PROVIDERS: ATTEND Internal Medicine Sleep Medicine
DX: J91.8 Pleural effusion in other conditions classified elsewhere (principal)
CPT/HCPCS: 36415; 85027; 85610; 85730

== ENCOUNTER 2017-09-26 06:57 | Day surgery (SDC) | payer OTHER ==
[2017-09-26 08:20] VITALS: BP 143/95; PULSE 18; RESP 18; TEMP 98.8; O2SAT 97
[2017-09-26] MEDS ORDERED: LIDOCAINE HCL 1% PF 30 ML VIAL ONE (09:13)
--- NOTE | 2017-09-26 09:15 | RADRPT ---
EXAM DATE/TIME: 09/26/2017 08:57 [facility] COMPARISON: CHEST SINGLE AP, September 04, 2017, 7:12. INDICATIONS : Post left side thoracentesis, evaluate for pneumothorax MEDICAL HISTORY : Carcinoma, rectal. Carcinoma, colon. Cardiovascular disease. SURGICAL HISTORY : None. ENCOUNTER: Initial ACUITY: 1 day PAIN SCORE: 0/10 LOCATION: Left chest FINDINGS: Portable upright x-ray view of the chest demonstrates a normal-sized cardiac silhouette. There is a m oderate size left basilar pleural-parenchymal opacity. No pneumothorax is visualized. Right lung is c lear. There are multiple left rib fractures identified involving at least the left fifth through eigh th ribs. CONCLUSION: 1. No pneumothorax following left thoracentesis. 2. There is persistent residual small moderate size left pleural effusion with associated compressive atelectasis. The thoracentesis procedure was terminated after removal of 1.2 L of fluid given the pa tient's coughing and nausea. The patient can always be return for additional thoracentesis at a separ ate time, if needed clinically. 3. Multiple left rib fractures remain visualized. Jose Guadalupe Peguero MD on September 26, 2017 at 9:11 Board Certified Radiologist. This report was verified electronically.
[2017-09-26 09:25] VITALS: BP 128/67; PULSE 83; RESP 18; TEMP 98.2; O2SAT 94
[2017-09-26 09:40] VITALS: BP 122/70; PULSE 76; RESP 20; O2SAT 95
--- NOTE | 2017-09-26 09:42 | RADRPT ---
EXAM DATE/TIME: 09/26/2017 07:57 [facility] COMPARISON: CHEST SINGLE AP, September 04, 2017, 7:12. INDICATIONS : Left pleural effusion. MEDICAL HISTORY : Carcinoma, colon. Deep venous thrombosis. Sleep apnea. Chemotherapy. Radiation therapy. Depression. Anxiety. SURGICAL HISTORY : Tonsillectomy. Colon resection. Colostomy. Right chest port and removal. ENCOUNTER: Initial ACUITY: 1 month PAIN SCORE: 4/10 LOCATION: Left chest FLUID: Total volume of 1200 cc of clear, red fluid was removed. Fluid was sent to lab for ordered studies. TECHNIQUE: 1. Ultrasound guidance for thoracentesis. 2. Thoracentesis. The risks, benefits, and alternatives to ultrasound guided thoracentesis were explained to the patien t in lay simple terms, including the risk of bleeding and infection. Written and verbal informed con sent was obtained. Appropriate area for thoracentesis was marked under ultrasound guidance with the patient in the uprig ht position. Overlying skin was prepped and draped in the usual sterile fashion and with local anest hetic, a dermatotomy was made with an 11 blade scalpel. A 6 Thai thoracentesis catheter was placed in the pleural space and fluid was removed. Catheter was then removed and a sterile dressing applie d. There were no immediate complications. The patient tolerated the procedure well and the left the ultrasound suite in stable condition. Chest radiograph is to be obtained. CONCLUSION: Uncomplicated ultrasound guided thoracentesis with removal of 1.2 L of fluid. The patient experienced extreme coughing and near vomiting, therefore, the procedure was terminated prior to complete remova l of fluid. The patient could return at another setting for additional removal of fluid, if desired c chi. Jose Guadalupe Peguero MD on September 26, 2017 at 9:38 Board Certified Radiologist. This report was verified electronically.
--- NOTE | 2017-09-26 09:46 | PD.RAD ---
Post US Procedure Prog Note Pre Procedure Diagnosis: (1) Pleural effusion, left Post Procedure Diagnosis: (1) Pleural effusion, left Procedure Date: Sep 26, 2017 Supervising Radiologist: Jose Guadalupe Peguero Estimated blood loss: none Anesthesia: Local Plan of Activity Patient to Unit: ROPU Patient Condition: Good See PACS Report for procedural detail/treatment Drainage Procedure Procedure 1 Imaging Guidance: Ultrasound Side: Left Procedure Type: Thoracentesis Drainage: Suction Fluid Removal (CCs): 1200 Fluid Description: Red Additional Detail: patient developed severe coughing and near vomiting during procedure. Plan to ROPU then discharge. Jose Guadalupe Peguero MD Sep 26, 2017 09:46
[2017-09-26 10:16] LABS: GLUCOSE,PLEURAL FLUID 96 MG/DL
[2017-09-26 10:39] LABS: PLEURAL FLUID LYMPHS 70 %; PLEURAL FLUID POLYS (SEGS) 21 %; PLEURAL FLUID RBC 24141 /MM3 (0-0); PLEURAL FLUID WBC 1053 /MM3 (0-10)
[2017-09-26 10:40] LABS: PLEURAL FLUID EOS 2 %; PLEURAL FLUID HISTIOCYTES 4 %; PLEURAL FLUID MESOTHELIAL 3 %
[2017-09-27 14:36] LABS: AMYLASE BODY FLUID 38 U/L; AMYLASE BODY FLUID TYPE PLEURAL
== END 2017-09-26 09:52 | disposition home or self-care (01) ==
LOC: HRAD 06:57 → HRIP 06:57 → HRAD 09:52
PROVIDERS: ATTEND Internal Medicine Sleep Medicine
DX: J90 Pleural effusion, not elsewhere classified (principal); I25.10 Atherosclerotic heart disease of native coronary artery without angina pectoris; G47.30 Sleep apnea, unspecified; F41.9 Anxiety disorder, unspecified; F32.9 Major depressive disorder, single episode, unspecified; S22.42XA Multiple fractures of ribs, left side, initial encounter for closed fracture
CPT/HCPCS: 32555; 71045; 82150; 82945; 83615; 87015; 87070; 87102; 87116; 87205; 87206; 88112; 88305; 89051; C1729